=== PATIENT | female | born 1980 | race African-American/Black ===

== ENCOUNTER 2023-01-19 22:28 | Emergency (ER) | payer MEDICAID, OTHER ==
[~2023-01-19] VITALS: Ht 170 cm; Wt 84.0 kg
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
[2023-01-20] MEDS ORDERED: ACETAMINOPHEN 500 MG TAB (TYLENOL) PO ONE (00:45)
[2023-01-20] MEDS ORDERED: IBUPROFEN TABLET 200 MG TAB PO ONE (00:45)
[2023-01-20 01:06] VITALS: BP 104/74
--- NOTE | 2023-01-20 07:48 | Diagnostic Imaging Report ---
EXAMINATION: Right shoulder radiographs, 3 views, 4 images. COMPARISON: None. HISTORY: 42-year-old female, right shoulder pain. FINDINGS: The humeral head is normally positioned relative to the glenoid. There is no glenohumeral joint space loss. The acromioclavicular joint is unremarkable in alignment. There are no acromioclavicular degenerative changes. There is no identified acute fracture. IMPRESSION: 1. Unremarkable radiographs of the right shoulder. Dictated by: Dictated on workstation # [id number]
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
--- NOTE | 2023-01-20 08:38 | Diagnostic Imaging Report ---
EXAMINATION: Chest radiograph, portable AP view. DATE: 01/19/2023 11:50 PM INDICATION: 42-year-old female, chest pain. COMPARISON: None. FINDINGS: Heart size and mediastinal contours are unremarkable. There is no identified pneumothorax. There is no large pleural effusion. There is no identified focal airspace consolidation. IMPRESSION: 1. No identified acute cardiopulmonary abnormality. Dictated by: Dictated on workstation # [id number]
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
== END 2023-01-20 01:09 | disposition home or self-care (01) ==
LOC: ER 22:32
DX: S06.0XAA Concussion with loss of consciousness status unknown, initial encounter (principal); M25.511 Pain in right shoulder; M54.2 Cervicalgia; M54.6 Pain in thoracic spine; R40.2362 Coma scale, best motor response, obeys commands, at arrival to emergency department; R40.2142 Coma scale, eyes open, spontaneous, at arrival to emergency department; R40.2252 Coma scale, best verbal response, oriented, at arrival to emergency department; Z28.310 Unvaccinated for COVID-19; V49.50XA Passenger injured in collision with unspecified motor vehicles in traffic accident, initial encounter; Y92.410 Unspecified street and highway as the place of occurrence of the external cause
CPT/HCPCS: 70450; 71045; 72125; 72128; 73030